=== PATIENT | female | born 1990 | race Caucasian/White ===

== ENCOUNTER 2023-10-06 07:45 | Inpatient (IN) | payer OTHER, SELFPAY ==
[2023-10-06 08:04] VITALS: BP 117/61; BMI 33.0
[2023-10-06] MEDS: CYTOTEC 25 MICROGRAM VAG (11:20)
[2023-10-06 11:34] LABS: % Basophils 0.3 % (0-2); % Eosinophils 1.4 % (0-6); % Immature Granulocytes 0.5 % (0-0.5); % Lymphocytes 23.8 % (20.5-51.1); % Monocytes 5.7 % (1.7-9.3); % Neutrophils 68.3 % (42.2-75.2); Absolute Eosinophils 0.1 10^3/uL (0-0.7); Absolute Lymphocytes 1.9 10^3/uL (1.2-3.4); Absolute Monocytes 0.5 10^3/uL (0.1-0.6); Absolute Neutrophils 5.4 10^3/uL (1.4-6.5); Hematocrit 33.3 % (37.0-47.0); Hemoglobin 11.6 g/dL (12.0-16.0); Mean Corp Hgb Conc. 34.8 g/dL (33.0-37.0); Mean Corpuscular Hgb 29.7 pg (27.0-31.0); Mean Corpuscular Volume 85.4 fL (81.0-99.0); Mean Platelet Volume 10.4 fL (7.4-10.4); Nucleated Red Blood Cells % 0 %; Platelet Count 195 10^3/uL (130-400); Red Cell Dist. Width 13.7 % (11.5-14.5); White Blood Cell Count 7.9 10^3/uL (4.8-10.8)
[2023-10-06] MEDS: CYTOTEC 50 MICROGRAM PO ×2 (15:09→18:46)
[2023-10-06] MEDS: PLAQUENIL 200 MG PO (20:40)
[2023-10-06] MEDS: MORPHINE SULFATE 2 MG IV (22:30)
[2023-10-07] MEDS: CYTOTEC PO ×2 (03:20)
[2023-10-07] MEDS: LR 1000 IV ×2 (04:40→05:33)
[2023-10-07] MEDS: SUBLIMAZE 100 MCG EPIDURAL (04:58)
[2023-10-07] MEDS: FENTANYL/BUPIVACAINE 100 EPIDURAL (04:58)
[2023-10-07] MEDS: PITOCIN 30 UNITS/NSS 500 ML IV ×2 (05:54→13:09)
[2023-10-07] MEDS: SYNTHROID 125 MCG PO (06:04)
[2023-10-07] MEDS: PLAQUENIL 200 MG PO ×2 (08:02→19:57)
[2023-10-07] MEDS: PLAQUENIL PO (19:57)
[2023-10-07] MEDS: MOTRIN 600 MG PO (20:06)
[2023-10-07] MEDS: TYLENOL 650 MG PO (23:25)
[2023-10-08] MEDS: MOTRIN 600 MG PO ×3 (05:35→20:03)
[2023-10-08] MEDS: SYNTHROID 125 MCG PO (05:35)
[2023-10-08] MEDS: TYLENOL 650 MG PO ×3 (05:35→20:04)
[2023-10-08 06:20] LABS: Hematocrit 35.1 % (37.0-47.0); Hemoglobin 11.7 g/dL (12.0-16.0)
[2023-10-08] MEDS: PLAQUENIL 200 MG PO ×2 (07:55→20:03)
[2023-10-08] MEDS: PLAQUENIL PO (07:55)
[2023-10-08] MEDS: SENOKOT-S 1 TABLET PO (07:55)
[2023-10-09] MEDS: TYLENOL 650 MG PO (02:24)
[2023-10-09] MEDS: MOTRIN 600 MG PO ×2 (02:24→09:06)
[2023-10-09] MEDS: SYNTHROID 125 MCG PO (05:35)
[2023-10-09] MEDS: PLAQUENIL 200 MG PO (09:06)
[2023-10-09] MEDS: SENOKOT-S 1 TABLET PO (09:06)
[2023-10-10 09:57] LABS: Syphilis/T. pallidum Ab Reflex Negative (Negative)
== END 2023-10-09 11:54 | disposition home or self-care (01) | DRG 807 ==
LOC: LDRP 07:45
PROVIDERS: Obstetrics & Gynecology; ADMITTING PHYSICIAN Obstetrics & Gynecology
PROC: 3E0P7VZ Introduction of Hormone into Female Reproductive, Via Natural or Artificial Opening (ICD-10-PCS; 2023-10-06)
PROC: 0U7C7ZZ Dilation of Cervix, Via Natural or Artificial Opening (ICD-10-PCS; 2023-10-06)
PROC: 3E033VJ Introduction of Other Hormone into Peripheral Vein, Percutaneous Approach (ICD-10-PCS; 2023-10-07)
PROC: 10E0XZZ Delivery of Products of Conception, External Approach (ICD-10-PCS; 2023-10-07)
PROC: 10907ZC Drainage of Amniotic Fluid, Therapeutic from Products of Conception, Via Natural or Artificial Opening (ICD-10-PCS; 2023-10-07)
PROC: 6A550ZT Pheresis of Cord Blood Stem Cells, Single (ICD-10-PCS; 2023-10-07)
DX: O99.284 Endocrine, nutritional and metabolic diseases complicating childbirth (principal); Z37.0 Single live birth; E03.9 Hypothyroidism, unspecified; Z3A.39 39 weeks gestation of pregnancy; O99.214 Obesity complicating childbirth; O69.5XX0 Labor and delivery complicated by vascular lesion of cord, not applicable or unspecified; M35.00 Sjogren syndrome, unspecified; G62.9 Polyneuropathy, unspecified; O43.123 Velamentous insertion of umbilical cord, third trimester; Z82.49 Family history of ischemic heart disease and other diseases of the circulatory system; Z80.0 Family history of malignant neoplasm of digestive organs; Z88.1 Allergy status to other antibiotic agents; Z91.02 Food additives allergy status
CPT/HCPCS: 88307; 36415; 85014; 85018; 85025; 86780; 86850; 86900; 86901

== ENCOUNTER → 2024-01-22 14:49 | Outpatient (REF) | payer OTHER, SELFPAY | LOC: RAD 14:49 | PROVIDERS: ATTENDING PHYSICIAN Otolaryngology; FAMILY PHYSICIAN Nurse Practitioner Adult Health | DX: J32.0 Chronic maxillary sinusitis (principal); J34.3 Hypertrophy of nasal turbinates | CPT/HCPCS: 70486 ==

== ENCOUNTER → 2024-04-25 13:27 | Outpatient (REF) | payer OTHER, SELFPAY | LOC: PNTC 13:27 | PROVIDERS: ATTENDING PHYSICIAN Obstetrics & Gynecology | DX: Z36.0 Encounter for antenatal screening for chromosomal anomalies (principal); Z36.82 Encounter for antenatal screening for nuchal translucency | CPT/HCPCS: 76801; 76813 ==

== ENCOUNTER → 2024-05-20 09:46 | Outpatient (REF) | payer OTHER, SELFPAY | LOC: PNTC 09:46 | PROVIDERS: ATTENDING PHYSICIAN Obstetrics & Gynecology | DX: O09.529 Supervision of elderly multigravida, unspecified trimester (principal) | CPT/HCPCS: 76805 ==

== ENCOUNTER → 2024-06-17 10:05 | Outpatient (REF) | payer OTHER, SELFPAY | LOC: PNTC 10:05 | PROVIDERS: ATTENDING PHYSICIAN Obstetrics & Gynecology | DX: O09.519 Supervision of elderly primigravida, unspecified trimester (principal) | CPT/HCPCS: 76811 ==

== ENCOUNTER → 2024-07-29 10:46 | Outpatient (REF) | payer OTHER, SELFPAY | LOC: PNTC 10:46 | PROVIDERS: ATTENDING PHYSICIAN Obstetrics & Gynecology | DX: O09.529 Supervision of elderly multigravida, unspecified trimester (principal); O99.280 Endocrine, nutritional and metabolic diseases complicating pregnancy, unspecified trimester; M35.9 Systemic involvement of connective tissue, unspecified | CPT/HCPCS: 76816 ==

== ENCOUNTER → 2024-08-26 11:28 | Outpatient (REF) | payer OTHER, SELFPAY | LOC: PNTC 11:28 | PROVIDERS: ATTENDING PHYSICIAN Obstetrics & Gynecology | DX: O09.529 Supervision of elderly multigravida, unspecified trimester (principal); O99.280 Endocrine, nutritional and metabolic diseases complicating pregnancy, unspecified trimester; O99.713 Diseases of the skin and subcutaneous tissue complicating pregnancy, third trimester | CPT/HCPCS: 76816; 76818; 76820 ==

== ENCOUNTER → 2024-09-03 10:28 | Outpatient (REF) | payer OTHER, SELFPAY | LOC: PNTC 10:28 | PROVIDERS: ATTENDING PHYSICIAN Student in an Organized Health Care Education/Training Program | DX: O36.5990 Maternal care for other known or suspected poor fetal growth, unspecified trimester, not applicable or unspecified (principal) | CPT/HCPCS: 59025 ==

== ENCOUNTER → 2024-09-09 13:48 | Outpatient (REF) | payer OTHER, SELFPAY | LOC: PNTC 13:48 | PROVIDERS: ATTENDING PHYSICIAN Student in an Organized Health Care Education/Training Program | DX: O36.5990 Maternal care for other known or suspected poor fetal growth, unspecified trimester, not applicable or unspecified (principal) | CPT/HCPCS: 59025; 76815; 76820 ==

== ENCOUNTER → 2024-09-16 13:30 | Outpatient (REF) | payer OTHER, SELFPAY | LOC: PNTC 13:30 | PROVIDERS: ATTENDING PHYSICIAN Obstetrics & Gynecology | DX: O36.5990 Maternal care for other known or suspected poor fetal growth, unspecified trimester, not applicable or unspecified (principal) | CPT/HCPCS: 59025; 76816; 76820 ==

== ENCOUNTER → 2024-09-23 11:32 | Outpatient (REF) | payer OTHER, SELFPAY | LOC: PNTC 11:32 | PROVIDERS: ATTENDING PHYSICIAN Obstetrics & Gynecology | DX: M35.9 Systemic involvement of connective tissue, unspecified (principal); O99.280 Endocrine, nutritional and metabolic diseases complicating pregnancy, unspecified trimester; O09.529 Supervision of elderly multigravida, unspecified trimester | CPT/HCPCS: 59025; 76815; 76820 ==

== ENCOUNTER → 2024-09-30 11:26 | Outpatient (REF) | payer OTHER, SELFPAY | LOC: PNTC 11:26 | PROVIDERS: ATTENDING PHYSICIAN Obstetrics & Gynecology | DX: O09.529 Supervision of elderly multigravida, unspecified trimester (principal); E03.9 Hypothyroidism, unspecified; O99.719 Diseases of the skin and subcutaneous tissue complicating pregnancy, unspecified trimester | CPT/HCPCS: 59025; 76815; 76820 ==

== ENCOUNTER → 2024-10-07 11:36 | Outpatient (REF) | payer OTHER, SELFPAY | LOC: PNTC 11:36 | PROVIDERS: ATTENDING PHYSICIAN Obstetrics & Gynecology | DX: O09.529 Supervision of elderly multigravida, unspecified trimester (principal); O99.280 Endocrine, nutritional and metabolic diseases complicating pregnancy, unspecified trimester; O99.719 Diseases of the skin and subcutaneous tissue complicating pregnancy, unspecified trimester; O36.5930 Maternal care for other known or suspected poor fetal growth, third trimester, not applicable or unspecified | CPT/HCPCS: 59025; 76816; 76820 ==

== ENCOUNTER → 2024-10-14 11:35 | Outpatient (REF) | payer OTHER, SELFPAY | LOC: PNTC 11:35 | PROVIDERS: ATTENDING PHYSICIAN Obstetrics & Gynecology | DX: O09.529 Supervision of elderly multigravida, unspecified trimester (principal); L94.9 Localized connective tissue disorder, unspecified; E03.9 Hypothyroidism, unspecified | CPT/HCPCS: 59025; 76815; 76820 ==

== ENCOUNTER → 2024-10-21 11:04 | Outpatient (REF) | payer OTHER, SELFPAY | LOC: PNTC 11:04 | PROVIDERS: ATTENDING PHYSICIAN Obstetrics & Gynecology | DX: O09.529 Supervision of elderly multigravida, unspecified trimester (principal); E03.9 Hypothyroidism, unspecified; L94.9 Localized connective tissue disorder, unspecified; O36.51 Maternal care for known or suspected placental insufficiency | CPT/HCPCS: 59025; 76815; 76820 ==

== ENCOUNTER 2024-10-28 12:58 | Inpatient (IN) | payer OTHER, SELFPAY ==
[2024-10-28 13:07] VITALS: BP 127/80; BMI 32.2
[2024-10-28] MEDS: LR 1000 IV ×2 (14:00→21:07)
[2024-10-28 14:29] LABS: Hematocrit 34.7 % (37.0-47.0); Hemoglobin 12.5 g/dL (12.0-16.0); Mean Corp Hgb Conc. 36.0 g/dL (33.0-37.0); Mean Corpuscular Volume 86.1 fL (81.0-99.0); Nucleated Red Blood Cells % 0 %; Platelet Count 206 10^3/uL (130-400); Red Cell Dist. Width 13.2 % (11.5-14.5)
[2024-10-28] MEDS: CYTOTEC 25 MICROGRAM VAG (14:55)
[2024-10-28] MEDS: CYTOTEC 50 MICROGRAM PO (19:14)
[2024-10-28] MEDS: CYTOTEC PO (23:17)
[2024-10-29] MEDS: PITOCIN 30 UNITS/NSS 500 ML IV (00:30)
[2024-10-29] MEDS: STADOL 1 MG IV ×2 (00:41→05:09)
--- NOTE | 2024-10-29 02:25 | DOWNTIME ---
There was a [employer] Downtime on 10/29/2024 from 0100 to 10/29/2024 at 0220. Downtime documentation of patient's care, including medication administrations, has been reconciled in the electronic record per guidelines. Refer to the
patient's paper chart under the miscellaneous tab to see printed paper medication records and downtime forms.
[2024-10-29] MEDS: CYTOTEC PO ×4 (05:10→16:26)
[2024-10-29] MEDS: SYNTHROID 125 MCG PO (06:06)
[2024-10-29] MEDS: FENTANYL/BUPIVACAINE 100 EPIDURAL ×2 (08:12→16:26)
[2024-10-29] MEDS: SUBLIMAZE 100 MCG EPIDURAL (08:12)
[2024-10-29] MEDS: PRENATAL PLUS PO (10:41)
[2024-10-29] MEDS: TRANEXAMIC ACID 100 IV (18:58)
[2024-10-29 19:22] LABS: Cord ABG B.E. - POC -5.3 mmol/L; Cord ABG HCO3 - POC 26 mmol/L; Cord ABG O2 Sat % - POC 26.7 %; Cord ABG pCO2 - POC 71 mmHg; Cord ABG pH - POC 7.17; Cord ABG pO2 - POC 23 mmHg
[2024-10-29] MEDS: MOTRIN 600 MG PO (22:36)
[2024-10-29] MEDS: COLACE 100 MG PO (22:37)
[2024-10-30] MEDS: MOTRIN 600 MG PO ×3 (05:39→21:54)
[2024-10-30] MEDS: SYNTHROID 125 MCG PO (05:40)
[2024-10-30 05:51] LABS: Hematocrit 33.6 % (37.0-47.0); Hemoglobin 11.3 g/dL (12.0-16.0)
[2024-10-30 07:51] LABS: Cord VBG B.E. - POC -5.4 mmol/L; Cord VBG HCO3 - POC 25 mmol/L; Cord VBG pCO2 - POC 68 mmHg; Cord VBG pH - POC 7.18; Cord VBG pO2 - POC < 18 mmHg
[2024-10-30] MEDS: PRENATAL PLUS 1 TABLET PO (08:04)
[2024-10-30] MEDS: COLACE 100 MG PO ×2 (08:04→20:21)
[2024-10-31] MEDS: TYLENOL 650 MG PO (00:05)
[2024-10-31] MEDS: SYNTHROID 125 MCG PO (05:46)
[2024-10-31] MEDS: COLACE 100 MG PO (08:25)
[2024-10-31] MEDS: PRENATAL PLUS 1 TABLET PO (08:25)
[2024-10-31] MEDS: MOTRIN 600 MG PO (09:41)
[2024-11-01 13:19] LABS: Syphilis/T. pallidum Ab Reflex Negative (Negative)
== END 2024-10-31 14:00 | disposition home or self-care (01) | DRG 807 ==
LOC: LDRP 12:58
PROVIDERS: Obstetrics & Gynecology; ADMITTING PHYSICIAN Obstetrics & Gynecology
PROC: 3E0P7VZ Introduction of Hormone into Female Reproductive, Via Natural or Artificial Opening (ICD-10-PCS; 2024-10-28)
PROC: 3E033VJ Introduction of Other Hormone into Peripheral Vein, Percutaneous Approach (ICD-10-PCS; 2024-10-28)
PROC: 10907ZC Drainage of Amniotic Fluid, Therapeutic from Products of Conception, Via Natural or Artificial Opening (ICD-10-PCS; 2024-10-29)
PROC: 10E0XZZ Delivery of Products of Conception, External Approach (ICD-10-PCS; 2024-10-29)
DX: O36.5930 Maternal care for other known or suspected poor fetal growth, third trimester, not applicable or unspecified (principal); Z37.0 Single live birth; Z3A.39 39 weeks gestation of pregnancy; O69.2XX0 Labor and delivery complicated by other cord entanglement, with compression, not applicable or unspecified; O99.284 Endocrine, nutritional and metabolic diseases complicating childbirth; E06.3 Autoimmune thyroiditis; M35.9 Systemic involvement of connective tissue, unspecified; O76 Abnormality in fetal heart rate and rhythm complicating labor and delivery
CPT/HCPCS: 59025; 76816; 85014; 85018; 85025; 86780; 86850; 86870; 86900; 86901; 88307

== ENCOUNTER → 2024-12-18 20:20 | Outpatient (REF) | payer OTHER, SELFPAY | LOC: MRI 20:20 | PROVIDERS: ATTENDING PHYSICIAN Obstetrics & Gynecology; FAMILY PHYSICIAN Nurse Practitioner Adult Health | DX: R51.9 Headache, unspecified (principal); R51.0 Headache with orthostatic component, not elsewhere classified | CPT/HCPCS: 70551 ==